=== PATIENT | female | born 1950 | race Caucasian/White ===

== ENCOUNTER 2016-11-11 07:39 | Day surgery (SDC) | payer BC ==
--- NOTE | ~2016-11-11 | EGD ---
EGD REPORT [facility] [address] [address] NAME: JASWINDER HANNAH : 46 STATUS : REG [facility]#: [id number] AGE: 66 ADM/REG DATE : 11/11/16 MR#: [id number] REPORT SERV DATE: 11/11/16 DICTATED BY: ANGEL CASTRO DATE: 11/11/16 REPORT STATUS : Draft TRANSCRIBED BY: [employer] DATE: 11/11/16 [facility] Center Patient Name: Jaswinder Hannah Date of : 1950 Attending MD: ANGEL CASTRO MD Procedure Date No Time: 11/11/2016 Procedure: Upper GI endoscopy Indications: Dysphagia, Follow-up of Mejia's esophagus Referring MD: JOVI BURLESON MD Medicines: as per anesthesia Complications: No immediate complications. Procedure: After obtaining informed consent, the endoscope was passed under direct vision. Throughout the procedure, the patient's blood pressure, pulse, and oxygen saturations were monitored continuously. The GIF [id number] was introduced through the mouth, and advanced to the third part of duodenum. The upper GI endoscopy was accomplished without difficulty. The patient tolerated the procedure. 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 The maximum longitudinal extent of these mucosal changes was 2 cm in length. Mucosa was biopsied with a cold forceps for histology randomly at intervals of 1 cm in the lower third of the esophagus. One specimen bottle was sent to pathology. The scope was withdrawn. Dilation was performed with a [place] dilator with no resistance at 44 Fr. The entire examined stomach was normal. The cardia and gastric fundus were normal on retroflexion. The examined duodenum was normal. Impression: - Esophageal mucosal changes secondary to established short-segment Mejia's disease. Biopsied. Dilated. - Normal stomach. - Normal examined duodenum. Recommendation: - Await pathology results. Procedure Code(s): --- Professional --- 71436, Esophagogastroduodenoscopy, flexible, transoral; with biopsy, single or multiple 51734, Dilation of esophagus, by unguided sound or bougie, single or multiple passes EGD REPORT [facility] [address] [place] [address] [place] [address] NAME: JASWINDER HANNAH : [birth year] STATUS : REG [facility] PAT#: [id number] AGE: 66 ADM/REG DATE : 11/11/16 MR#: [id number] REPORT SERV DATE: 11/11/16 DICTATED BY: ANGEL CASTRO. DATE: 11/11/16 REPORT STATUS : Draft TRANSCRIBED BY: [email or web address] DATE: 11/11/16 Diagnosis Code(s): --- Professional --- K22.70, Mejia's esophagus without dysplasia R13.10, Dysphagia, unspecified CPT copyright 2013 [employer]. All rights reserved. The codes documented in this report are preliminary and upon vegetable preparer review may be revised to meet current compliance requirements. ANGEL CASTRO MD 11/11/2016 10:06 AM This report has been signed electronically. Number of Addenda: 0 Note Initiated On: 11/11/2016 9:39 AM Scope Withdrawal Time 0 hours 0 minutes 0 seconds [address] [place] [address]
[~2016-11-11 07:39] MED LIST: ACCUNEB INH; ADVAIR INH; ALBUTEROL0.63 MG/3 INH; ALLER-CHLOR4 MG OR; ARAVA20 PO; ASAB PO; ASTEPRO0.15 % NAS; B COMPLETE PO; CALTRA600D PO; CALTRAT600 PO; CARDCD240 PO; CROMOLYN SOD4 % OP; DALIRESP; DALIRESP500 MCG PO; DILACOR XR PO; DILT-XR240 MG PO; ESTRADIOL1 MG PO; FLONASE NAS; ISOSORB DIN30 MG PO; IVIG INFUSION; IVIGLIQ; L ARGININE PO; LEVOTHYROXIN100 MCG PO; LEVOTHYROXIN75 MCG PO; LEXAPRO20 PO; LIOR10 PO; LORTAB 5 PO; MUCINEX1200 MG PO; MULTIPLE VIT PO; MULTIVITAMI1 PO; MYRBETRIQ25 MG PO; NITROSTAT0.4 MG SL; NORCO1 TA2 PO; P10 PO; PLAQ200B PO; PRAVACHOL40 MG PO; PREV30 PO; PROVHFA INH; PVC V; RANITIDINE OR; RANITIDINE300 MG PO; RECLAST IV; SALAGEN5 M1 OR; SINGULAIR1 PO; SPIRIVA INH; SYMBICORT 160/41 INH INH; SYN1 PO; SYN88 PO; VENTOLIN HFA INH; VICODIN OR; VITAMIN C100 MG PO; VITAMIN D31000 UNIT PO; XOLAIR SC; XYZAL5 MG PO; ZADITOR EYE DROPS; ZANTAC300 MG PO; ZOFRAN8 PO; ZYRTEC ALLGY10 MG PO
== END 2016-11-11 23:59 | disposition home or self-care (01) ==
LOC: DMU 07:39
PROVIDERS: Internal Medicine Gastroenterology
PROC: 0DB38ZX Excision of Lower Esophagus, Via Natural or Artificial Opening Endoscopic, Diagnostic (ICD-10-PCS; principal; 2016-11-11 08:00)
PROC: 0D757ZZ Dilation of Esophagus, Via Natural or Artificial Opening (ICD-10-PCS; 2016-11-11 08:00)
DX: K22.70 Barrett's esophagus without dysplasia (principal); K20.9 Esophagitis, unspecified; E78.5 Hyperlipidemia, unspecified; I10 Essential (primary) hypertension; I25.10 Atherosclerotic heart disease of native coronary artery without angina pectoris; J44.9 Chronic obstructive pulmonary disease, unspecified; M06.9 Rheumatoid arthritis, unspecified; K21.9 Gastro-esophageal reflux disease without esophagitis; F32.9 Major depressive disorder, single episode, unspecified; H91.90 Unspecified hearing loss, unspecified ear; E78.00 Pure hypercholesterolemia, unspecified; J45.909 Unspecified asthma, uncomplicated; M79.7 Fibromyalgia; M85.80 Other specified disorders of bone density and structure, unspecified site; M48.06 Spinal stenosis, lumbar region; E89.0 Postprocedural hypothyroidism; Z91.041 Radiographic dye allergy status; Z88.2 Allergy status to sulfonamides; Z88.8 Allergy status to other drugs, medicaments and biological substances; Z79.82 Long term (current) use of aspirin; Z79.52 Long term (current) use of systemic steroids; Z79.891 Long term (current) use of opiate analgesic; Z79.899 Other long term (current) drug therapy; Z98.1 Arthrodesis status; Z90.49 Acquired absence of other specified parts of digestive tract; Z98.890 Other specified postprocedural states; Z90.710 Acquired absence of both cervix and uterus
CPT/HCPCS: 88305